=== PATIENT | male | born 1980 | race Caucasian/White ===

== ENCOUNTER 2017-02-26 22:14 | Inpatient (IN) | payer SELFPAY ==
[2017-02-26] MEDS ORDERED: Ondansetron INJ* 2 MG/ML VIAL IV ONE (22:28)
[2017-02-26] MEDS ORDERED: Ondansetron INJ* 2 MG/ML VIAL ONE (22:29)
[2017-02-26] MEDS: NS 0.9% 1000 ML* 2,000 ML IV ONE (22:43)
[2017-02-27] MEDS ORDERED: Ondansetron INJ* 2 MG/ML VIAL IV ONE (00:47)
[2017-02-27] MEDS: NS 0.9% 1000 ML* 2,000 ML IV ONE ×2 (00:52→00:53)
[2017-02-27] MEDS ORDERED: Albuterol/Ipratropium NEB.SOL* Albuterol 2.5 MG/Ipratropium 0.5 MG 3 ML INH ONE (01:42)
[2017-02-27 02:26] LABS: Hematocrit 38 % (42-52); Hemoglobin 12.7 g/dl (14.0-18.0); Mean Corpuscular HGB Conc 34 g/dl (31-36); Mean Corpuscular Hemoglobin 31 pg (27-31); Mean Corpuscular Volume 92 fL (80-94); Mean Platelet Volume 7 um3 (7.4-10.4); Red Blood Count 4.09 10^6/ul (4.0-5.4); Red Cell Distribution Width 13 % (10.5-15); White Blood Count 20.2 10^3/ul (3.5-10.8)
[2017-02-27 02:40] LABS: BUN/Creatinine Ratio 16.1 (8-20); C Reactive Protein 1.15 mg/L (< 5.00); Calcium 7.6 mg/dL (8.6-10.3); EGFR African American 125.6 (>60); EGFR Non-African American 97.7 (>60); Globulin 2.1 g/dL (2-4); Potassium 3.7 mmol/L (3.5-5.0); Total Bilirubin 0.6 mg/dL (0.2-1.0); Total Protein 6.1 g/dL (6.4-8.9)
[2017-02-27 02:42] LABS: Troponin I 0.03 ng/mL (<0.04)
[2017-02-27 02:56] LABS: TSH (Thyroid Stimulating Horm) 1.22 mcIU/mL (0.34-5.60)
[2017-02-27 03:55] LABS: Urine Bilirubin Negative (Negative); Urine Glucose Negative (Negative); Urine Nitrite Negative (Negative)
--- NOTE | 2017-02-27 04:08 | HP ---
H&P (Free Text) History and Physical: PCP: none Date/Time: 02/27/2017 0355 CC: heroin OD HPI: Mr Barlow is a 37YO male HX polysubstance abuse who was at work at the [employer] last evening when he snorted 1/2 of the heroin he had. He felt ' fine', but later was 'coming down' and so snorted the other half and went back to work. The next thing he knew was of awakening in an ambulance vomiting. Since arrival, he states he feels better, but has chest tightness, SOB, & an saO2 in the low 90s. CXR reveals RML & LLL infiltrates consistent with aspiration. WBCs are 20k. PMedHx polysubstance abuse Ambulatory Orders NK [No Home Medications Reported] 09/22/12 Allergies No Known Allergies Allergy (Verified 02/26/17 22:40) PSurgHx denies SocHx: quit cigarettes 2 years ago, ~12 beers/week, regular marijuana, rare heroin which he has injected previously but not for year; single, 2 children, lives alone; full code status FamHx: Mother: alive in her 60s, healthy; Father: , cholangiocarcinoma, age 64; 1/2 sister: addiction, "female problems" ROS: as above, otherwise reviewed and all were negative vitals: Vital Signs Temp 36.8 C 02/26/17 22:38 Pulse 100 02/27/17 04:00 Resp 25 02/27/17 04:00 BP 135/79 02/27/17 04:00 Pulse Ox 96 02/27/17 04:00 Intake & Output 02/26/17 02/26/17 02/27/17 11:59 23:59 11:59 Intake Total 2001 2 Balance 2001 2 Weight 77.111 kg Intake: IV Fluids 2001 07 Constitutional: NAD, normally developed, well-nourished white male HEENM: atraumatic; sclera/conjunctiva: non-icteric/mildly injected OU; blephara : puffy; hearing: clinically intact; oropharynx: clear, mucosa moist Neck: soft tissue: non-tender; thyroid: normal Pulmonary: diminished R mid-field with scant crackle, fair aeration, no accessory muscle use CV: TR/RR, normal S1S2, no carotid bruit, no jugular venous distention, 2+ B DP/ PT, no edema Abdominal: soft, non-distended, non-tender, no rebound/guarding/rigidity, normoactive bowel sounds, no hepatosplenomegaly or masses, no costovertebral angle tenderness Musculoskeletal: general: grossly intact; gait: stable Integumental: normal appearance and texture of exposed skin Psychiatric orientation: AA&O to PPS affect: calm mood: cooperative eye contact: fair content: reliable responses: timely insight: fair Testing: Lab Results 02/27/17 02/27/17 02/27/17 Range/Units 02:00 02:00 02:00 WBC (3.5-10.8) 10^3/ul RBC (4.0-5.4) 10^6/ul Hgb (14.0-18.0) g/dl Hct (42-52) % MCV (80-94) fL MCH (27-31) pg MCHC (31-36) g/dl RDW (10.5-15) % Plt Count (150-450) 10^3/ul MPV (7.4-10.4) um3 Neut % (Auto) (38-83) % Lymph % (Auto) (25-47) % [place] % (Auto) (1-9) % Eos % (Auto) (0-6) % Baso % (Auto) (0-2) % Absolute Neuts (auto) (1.5-7.7) 10^3/ul Absolute Lymphs (auto) (1.0-4.8) 10^3/ul Absolute Monos (auto) (0-0.8) 10^3/ul Absolute Eos (auto) (0-0.6) 10^3/ul Absolute Basos (auto) (0-0.2) 10^3/ul Absolute Nucleated RBC 10^3/ul Nucleated RBC % INR (Anticoag Therapy) 0.85 L (0.89-1.11) APTT 23.8 L (26.0-36.3) seconds Sodium 137 (133-145) mmol/L Potassium 3.7 (3.5-5.0) mmol/L Chloride 105 (101-111) mmol/L Carbon Dioxide 24 (22-32) mmol/L Anion Gap 8 (2-11) mmol/L BUN 14 (6-24) mg/dL Creatinine 0.87 (0.67-1.17) mg/dL Est GFR ( Amer) 125.6 (>60) Est GFR (Non-Af Amer) 97.7 (>60) BUN/Creatinine Ratio 16.1 (8-20) Glucose 109 H (70-100) mg/dL Lactic Acid (0.5-2.0) mmol/L Calcium 7.6 L (8.6-10.3) mg/dL Total Bilirubin 0.60 (0.2-1.0) mg/dL AST 40 H (13-39) U/L ALT 42 (7-52) U/L Alkaline Phosphatase 54 (34-104) U/L Troponin I 0.03 (<0.04) ng/mL C-Reactive Protein 1.15 (< 5.00) mg/L B-Natriuretic Peptide 24 ( - 100) pg/mL Total Protein 6.1 L (6.4-8.9) g/dL Albumin 4.0 (3.2-5.2) g/dL Globulin 2.1 (2-4) g/dL Albumin/Globulin Ratio 1.9 (1-3) Lipase 33 (11.0-82.0) U/L TSH 1.22 (0.34-5.60) mcIU/mL Urine Color Urine Appearance Urine pH (5-9) Ur Specific [place] (1.010-1.030) Urine Protein (Negative) Urine Ketones (Negative) Urine Blood (Negative) Urine Nitrate (Negative) Urine Bilirubin (Negative) Urine Urobilinogen (Negative) Ur Leukocyte Esterase (Negative) Urine Glucose (Negative) 02/27/17 02/27/17 02/27/17 Range/Units 02:00 02:00 03:45 WBC 20.2 H (3.5-10.8) 10^3/ul RBC 4.09 (4.0-5.4) 10^6/ul Hgb 12.7 L (14.0-18.0) g/dl Hct 38 L (42-52) % MCV 92 (80-94) fL MCH 31 (27-31) pg MCHC 34 (31-36) g/dl RDW 13 (10.5-15) % Plt Count 288 (150-450) 10^3/ul MPV 7 L (7.4-10.4) um3 Neut % (Auto) 89.4 H (38-83) % Lymph % (Auto) 4.2 L (25-47) % [place] % (Auto) 6.3 (1-9) % Eos % (Auto) 0.1 (0-6) % Baso % (Auto) 0 (0-2) % Absolute Neuts (auto) 18.0 H (1.5-7.7) 10^3/ul Absolute Lymphs (auto) 0.9 L (1.0-4.8) 10^3/ul Absolute Monos (auto) 1.3 H (0-0.8) 10^3/ul Absolute Eos (auto) 0 (0-0.6) 10^3/ul Absolute Basos (auto) 0 (0-0.2) 10^3/ul Absolute Nucleated RBC 0 10^3/ul Nucleated RBC % 0 INR (Anticoag Therapy) (0.89-1.11) APTT (26.0-36.3) seconds Sodium (133-145) mmol/L Potassium (3.5-5.0) mmol/L Chloride (101-111) mmol/L Carbon Dioxide (22-32) mmol/L Anion Gap (2-11) mmol/L BUN (6-24) mg/dL Creatinine (0.67-1.17) mg/dL Est GFR ( Amer) (>60) Est GFR (Non-Af Amer) (>60) BUN/Creatinine Ratio (8-20) Glucose (70-100) mg/dL Lactic Acid 0.9 (0.5-2.0) mmol/L Calcium (8.6-10.3) mg/dL Total Bilirubin (0.2-1.0) mg/dL AST (13-39) U/L ALT (7-52) U/L Alkaline Phosphatase (34-104) U/L Troponin I (<0.04) ng/mL C-Reactive Protein (< 5.00) mg/L B-Natriuretic Peptide ( - 100) pg/mL Total Protein (6.4-8.9) g/dL Albumin (3.2-5.2) g/dL Globulin (2-4) g/dL Albumin/Globulin Ratio (1-3) Lipase (11.0-82.0) U/L TSH (0.34-5.60) mcIU/mL Urine Color Straw Urine Appearance Clear Urine pH 6.0 (5-9) Ur Specific [place] 1.011 (1.010-1.030) Urine Protein Negative (Negative) Urine Ketones Trace H (Negative) Urine Blood Negative (Negative) Urine Nitrate Negative (Negative) Urine Bilirubin Negative (Negative) Urine Urobilinogen Negative (Negative) Ur Leukocyte Esterase Negative (Negative) Urine Glucose Negative (Negative) ECG, personally reviewed: NSR rate 94, no ischemia CXR, personally reviewed: RML and LLL infiltrates Impression: 37M presenting with snorted heroin OD with finding of RML/LLL aspiration pneumonia DIAGNOSIS & PLAN Primary sepsis (leukocytosis, tackycardia) 2nd RML/LLL aspiration pneumonia : IV piperacillin/tazobactam : IVFs : blood & sputum CXs : guaifenesin : incentive spirometry : supplemental oxygen : supportive care polysubstance abuse w/ heroin OD : social service consult Admission Rational: inpatient for sepsis 2nd aspiration pneumonia requiring IV ABX & IVFs; inappropriate for outpatient setting DVTp: GRAYSON Code Status: full
[2017-02-27] MEDS ORDERED: CMCS:Melatonin (NF) 3 MG TAB PO PRN (04:13)
[2017-02-27] MEDS ORDERED: Acetaminophen TAB* 325 MG PO PRN (04:13)
[2017-02-27] MEDS ORDERED: Albuterol 2.5 MG/3 ML NEB.SOL* (0.083%) INH PRN (04:13)
[2017-02-27] MEDS ORDERED: Ondansetron INJ* 2 MG/ML VIAL IV PRN (04:13)
[2017-02-27] MEDS ORDERED: Omeprazole CAP* 20 MG PO SCH (06:00)
[2017-02-27] MEDS: NS 0.9% 1000 ML* 1,000 ML IV SCH ×2 (06:01→14:58)
[2017-02-27 07:43] LABS: Hematocrit 36 % (42-52); Hemoglobin 12.1 g/dl (14.0-18.0); Mean Corpuscular HGB Conc 34 g/dl (31-36); Mean Corpuscular Hemoglobin 31 pg (27-31); Mean Corpuscular Volume 92 fL (80-94); Mean Platelet Volume 7 um3 (7.4-10.4); Red Blood Count 3.94 10^6/ul (4.0-5.4); Red Cell Distribution Width 14 % (10.5-15)
--- NOTE | 2017-02-27 07:55 | RAD ---
HISTORY: Shortness of breath, heroine overdose COMPARISONS: None VIEWS: 1: frontal portable view of the chest at 1:48 AM FINDINGS: LINES AND TUBES: None. CARDIOMEDIASTINAL SILHOUETTE: The cardiomediastinal silhouette is normal for portable technique. PLEURA: The costophrenic angles are sharp. No pleural abnormalities are noted. LUNG PARENCHYMA: There is patchy perihilar alveolar opacification on the right with patchy alveolar opacification of the left lower lung ABDOMEN: The upper abdomen is clear. There is no subphrenic gas. BONES AND SOFT TISSUES: No bone or soft tissue abnormalities are noted. IMPRESSION: PATCHY BILATERAL CONSOLIDATION
[2017-02-27] MEDS ORDERED: Docusate CAP* 100 MG PO SCH (09:00)
[2017-02-27] MEDS ORDERED: guaiFENesin ER TAB 600 MG PO SCH (09:00)
[2017-02-27] MEDS ORDERED: LORazepam TAB(*) 0.5 MG PO PRN (11:16)
[2017-02-27 14:41] VITALS: BP 117/61
--- NOTE | 2017-02-28 03:27 | DS ---
DISCHARGE SUMMARY: DATE OF ADMISSION: 02/27/17 DATE OF DISCHARGE: 02/27/17 DISCHARGE DIAGNOSES: 1. Incidental heroin overdose. 2. Aspiration pneumonia. MEDICATIONS ON DISCHARGE: Include Augmentin 500 mg p.o. b.i.d. for a total of 6 days. LABORATORY DATA: On 02/27/17, white blood cell count of 18.0, hemoglobin 12.1, hematocrit 36, and platelets of 280. Sodium 137, potassium 3.7, chloride 105, carbon dioxide 24, BUN 14, creatinine 0.8, TSH was 1.22. Portable chest x-ray obtained on admission. Impression: "Patchy bilateral consolidation." HOSPITALIZATION COURSE: Keron Barlow is a 37-year-old male who has a history of heroin use and he was "clean" for 2 weeks until the night on 02/26/17, when he snorted heroin twice, when he was working and the next thing he knew he woke up in his vomitus, being transferred by the ambulance to the hospital. The patient was treated with Narcan. He was diagnosed with aspiration pneumonia and placed on Zosyn. He did very well. By the time of discharge, he was not hypoxemic any more. His leukocytosis was improving. He was nontoxic appearing and comfortable breathing on room air when ambulating. He is going to be discharged home. Recommendation to follow up with his primary care provider. Social work saw the patient in consultation and he is in the process of application for the patient for Medicaid and then primary care provider physician could be established. In regards to patient's heroin use, the patient stated that he had been clean for 2 weeks prior to the incident and he is not interested in using the heroin or any other narcotics in the future. He was informed about the possibility of being signed in with an addiction clinic for Suboxone treatment. Once again the patient stated that he would go through withdrawal since he had not used for a couple of weeks prior, according to the patient. PHYSICAL EXAMINATION: At the time of discharge, blood pressure is 117/61, heart rate of 73 and regular, respiratory rate is 16, oxygen saturation 99% on room air, and temperature 98.3. General: The patient is a pleasant 37-year- old male, who is in no acute distress. Alert, awake, and oriented x2. HEENT: Head, atraumatic, normocephalic. Eyes, pupils are equal and reactive to light and accommodation. Oropharynx clear. Mucosa moist. Neck: Supple. No JVD. No bruits bilaterally. Cardiovascular: Regular rate and rhythm. No murmurs. Respiratory: Clear to auscultation bilaterally. Abdomen: Soft and nontender. Bowel sounds present in all 4 quadrants. Extremities: There is no edema, +2 bilaterally. No clubbing or cyanosis. Evaluation of skin: No ecchymotic area. Psychiatric evaluation: The patient is pleasant, cooperative with evaluation with no evidence of anxiety or depression. Please note due to the fact that patient has no insurance, he was prescribed urgent Rx prescription to [facility]. 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 [id number]/[facility] #: [id number] MTDD
--- NOTE | 2017-03-02 05:43 | ED ---
Cayla Sanchez Alfonso, scribed for Bertram Lucia MD on 02/27/17 at 0123 . Substance Abuse/Use - HPI Summary HPI Summary: This patient is a 37 year old M BIBA to [facility] with a chief complaint of snorted heroin OD at approximately 2100. The patient rates the aching pain 10/ 10 in severity. Symptoms aggravated by nothing. Symptoms alleviated by Narcan TRAINING MANAGER. Patient reports nausea, vomiting, CP (tightness), productive cough, LOC ( resolved with Narcan), and headache. Patient denies abdominal pain. - History Of Current Complaint Chief Complaint: EDOverdose Stated Complaint: OVERDOSE Time Seen by Provider: 02/26/17 22:28 Hx Obtained From: Patient Ingestion History: Type/Name Of Drug - Heroin Overdose Characteristics: Inhalation Timing Of Abuse: Binge Use Severity Currently: Severe Aggravating Factor(s): Nothing Alleviating Factor(s): Medication - Narcan Associated Signs And Symptoms: Other: - nausea, vomiting, CP (tightness), productive cough, LOC (resolved with Narcan), and headache. Patient denies abdominal pain. - Allergies/Home Medications Allergies/Adverse Reactions: Allergies Allergy/AdvReac Type Severity Reaction Status Date / Time No Known Allergies Allergy Verified 02/26/17 22:40 PMH/Surg Hx/FS Hx/Imm Hx Sensory History: Denies: Hx Contacts or Glasses Opthamlomology History: Denies: Hx Contacts or Glasses, Hx Legally Blind EENT History: Denies: Hx Deafness Psychiatric History: Reports: Hx Substance Abuse - per ED nurse, IV drug abuse Denies: Hx of Violent Episodes Against Others Infectious Disease History: Yes Infectious Disease History: Denies: Traveled Outside the [place] in Last 30 Days - Family History Known Family History: Positive: Other - reviewed and noncontributory - Social History Alcohol Use: Occasionally Substance Use Type: Reports: Cocaine, Heroin, Marijuana, Synthetic Drugs, Other Substance Use Comment - Amount & Last Used: IV drug use Smoking Status (MU): Current Every Day Smoker Review of Systems Positive: Chest Pain Positive: Cough Positive: Vomiting, Nausea. Negative: Abdominal Pain Neurological: Other - snorted heroin OD, LOC (resolved with Narcan), and headache All Other Systems Reviewed And Are Negative: Yes Physical Exam - Summary Physical Exam Summary: General: Mildly ill-appearing, no pain distress Skin: warm, color reflects adequate perfusion, dry Head: normal Eyes: EOMI, HAYDE ENT: normal Neck: supple, nontender Respiratory: CTA, breath sounds present Cardiovascular: Tachycardic. Regular rhythm. Abdomen: soft, nontender Bowel: present Musculoskeletal: normal, strength/ROM intact Neurological: normal, sensory/motor intact, A&O x3 Psychological: affect/mood appropriate Triage Information Reviewed: Yes Vital Signs On Initial Exam: Initial Vitals BP 130/81 02/26/17 22:34 Vital Signs Reviewed: Yes - Roxanne Coma Scale Coma Scale Total: 15 Diagnostics - Vital Signs Vital Signs Temp Pulse Resp BP Pulse Ox 02/27/17 00:00 86 32 127/101 95 02/26/17 23:30 89 29 123/94 95 02/26/17 23:00 80 15 130/92 94 02/26/17 22:38 98.3 F 83 18 130/81 92 02/26/17 22:35 16 02/26/17 22:34 130/81 - Laboratory Lab Results: Lab Results 02/27/17 02/27/17 02/27/17 Range/Units 02:00 02:00 02:00 WBC (3.5-10.8) 10^3/ul RBC (4.0-5.4) 10^6/ul Hgb (14.0-18.0) g/dl Hct (42-52) % MCV (80-94) fL MCH (27-31) pg MCHC (31-36) g/dl RDW (10.5-15) % Plt Count (150-450) 10^3/ul MPV (7.4-10.4) um3 Neut % (Auto) (38-83) % Lymph % (Auto) (25-47) % [place] % (Auto) (1-9) % Eos % (Auto) (0-6) % Baso % (Auto) (0-2) % Absolute Neuts (auto) (1.5-7.7) 10^3/ul Absolute Lymphs (auto) (1.0-4.8) 10^3/ul Absolute Monos (auto) (0-0.8) 10^3/ul Absolute Eos (auto) (0-0.6) 10^3/ul Absolute Basos (auto) (0-0.2) 10^3/ul Absolute Nucleated RBC 10^3/ul Nucleated RBC % INR (Anticoag Therapy) 0.85 L (0.89-1.11) APTT 23.8 L (26.0-36.3) seconds Sodium 137 (133-145) mmol/L Potassium 3.7 (3.5-5.0) mmol/L Chloride 105 (101-111) mmol/L Carbon Dioxide 24 (22-32) mmol/L Anion Gap 8 (2-11) mmol/L BUN 14 (6-24) mg/dL Creatinine 0.87 (0.67-1.17) mg/dL Est GFR ( Amer) 125.6 (>60) Est GFR (Non-Af Amer) 97.7 (>60) BUN/Creatinine Ratio 16.1 (8-20) Glucose 109 H (70-100) mg/dL Lactic Acid (0.5-2.0) mmol/L Calcium 7.6 L (8.6-10.3) mg/dL Total Bilirubin 0.60 (0.2-1.0) mg/dL AST 40 H (13-39) U/L ALT 42 (7-52) U/L Alkaline Phosphatase 54 (34-104) U/L Troponin I 0.03 (<0.04) ng/mL C-Reactive Protein 1.15 (< 5.00) mg/L B-Natriuretic Peptide 24 ( - 100) pg/mL Total Protein 6.1 L (6.4-8.9) g/dL Albumin 4.0 (3.2-5.2) g/dL Globulin 2.1 (2-4) g/dL Albumin/Globulin Ratio 1.9 (1-3) Lipase 33 (11.0-82.0) U/L TSH 1.22 (0.34-5.60) mcIU/mL Urine Color Urine Appearance Urine pH (5-9) Ur Specific [place] (1.010-1.030) Urine Protein (Negative) Urine Ketones (Negative) Urine Blood (Negative) Urine Nitrate (Negative) Urine Bilirubin (Negative) Urine Urobilinogen (Negative) Ur Leukocyte Esterase (Negative) Urine Glucose (Negative) 02/27/17 02/27/17 02/27/17 Range/Units 02:00 02:00 03:45 WBC 20.2 H (3.5-10.8) 10^3/ul RBC 4.09 (4.0-5.4) 10^6/ul Hgb 12.7 L (14.0-18.0) g/dl Hct 38 L (42-52) % MCV 92 (80-94) fL MCH 31 (27-31) pg MCHC 34 (31-36) g/dl RDW 13 (10.5-15) % Plt Count 288 (150-450) 10^3/ul MPV 7 L (7.4-10.4) um3 Neut % (Auto) 89.4 H (38-83) % Lymph % (Auto) 4.2 L (25-47) % [place] % (Auto) 6.3 (1-9) % Eos % (Auto) 0.1 (0-6) % Baso % (Auto) 0 (0-2) % Absolute Neuts (auto) 18.0 H (1.5-7.7) 10^3/ul Absolute Lymphs (auto) 0.9 L (1.0-4.8) 10^3/ul Absolute Monos (auto) 1.3 H (0-0.8) 10^3/ul Absolute Eos (auto) 0 (0-0.6) 10^3/ul Absolute Basos (auto) 0 (0-0.2) 10^3/ul Absolute Nucleated RBC 0 10^3/ul Nucleated RBC % 0 INR (Anticoag Therapy) (0.89-1.11) APTT (26.0-36.3) seconds Sodium (133-145) mmol/L Potassium (3.5-5.0) mmol/L Chloride (101-111) mmol/L Carbon Dioxide (22-32) mmol/L Anion Gap (2-11) mmol/L BUN (6-24) mg/dL Creatinine (0.67-1.17) mg/dL Est GFR ( Amer) (>60) Est GFR (Non-Af Amer) (>60) BUN/Creatinine Ratio (8-20) Glucose (70-100) mg/dL Lactic Acid 0.9 (0.5-2.0) mmol/L Calcium (8.6-10.3) mg/dL Total Bilirubin (0.2-1.0) mg/dL AST (13-39) U/L ALT (7-52) U/L Alkaline Phosphatase (34-104) U/L Troponin I (<0.04) ng/mL C-Reactive Protein (< 5.00) mg/L B-Natriuretic Peptide ( - 100) pg/mL Total Protein (6.4-8.9) g/dL Albumin (3.2-5.2) g/dL Globulin (2-4) g/dL Albumin/Globulin Ratio (1-3) Lipase (11.0-82.0) U/L TSH (0.34-5.60) mcIU/mL Urine Color Straw Urine Appearance Clear Urine pH 6.0 (5-9) Ur Specific [place] 1.011 (1.010-1.030) Urine Protein Negative (Negative) Urine Ketones Trace H (Negative) Urine Blood Negative (Negative) Urine Nitrate Negative (Negative) Urine Bilirubin Negative (Negative) Urine Urobilinogen Negative (Negative) Ur Leukocyte Esterase Negative (Negative) Urine Glucose Negative (Negative) Result Diagrams: 02/27/17 07:22 02/27/17 02:00 Lab Statement: Any lab studies that have been ordered have been reviewed, and results considered in the medical decision making process. - Radiology CXR Radiology Interpretation Completed By: ED Physician - pneumonia - EKG 0141 Cardiac Rate: NL - BPM 94 EKG Rhythm: Sinus Rhythm Course/Dx - Course Course Of Treatment: PATIENT WAS UNCONSCIOUS WHEN - Diagnoses Provider Diagnoses: Heroin overdose, Pneumonia, Hypoxia - Physician Notifications Discussed Care Of Patient With: Jodri Salguero Time Discussed With Above Provider: 03:38 Instructed by Provider To: Other - Consulted Dr. Salguero (hospitalist) who agrees to admit. Discharge - Discharge Plan Condition: Stable Disposition: ADMITTED TO [facility] documentation as recorded by the Cayla andrea Alfonso accurately reflects the service I personally performed and the decisions made by me, Bertram Lucia MD.
== END 2017-02-27 18:30 | disposition home or self-care (01) | DRG 871 ==
LOC: ED 22:14 → MED 02-27 03:55
PROVIDERS: ADMIT Hospitalist; ATTEND Internal Medicine
DX: A41.9 Sepsis, unspecified organism (principal); J69.0 Pneumonitis due to inhalation of food and vomit; I50.9 Heart failure, unspecified; I11.0 Hypertensive heart disease with heart failure; T40.1X2A Poisoning by heroin, intentional self-harm, initial encounter; Y92.9 Unspecified place or not applicable; Z87.891 Personal history of nicotine dependence; F19.10 Other psychoactive substance abuse, uncomplicated; I48.91 Unspecified atrial fibrillation; I25.10 Atherosclerotic heart disease of native coronary artery without angina pectoris; J44.9 Chronic obstructive pulmonary disease, unspecified; M81.0 Age-related osteoporosis without current pathological fracture; M35.3 Polymyalgia rheumatica; Z88.0 Allergy status to penicillin; Z88.1 Allergy status to other antibiotic agents; H35.30 Unspecified macular degeneration; H40.9 Unspecified glaucoma; Z95.2 Presence of prosthetic heart valve; Z82.49 Family history of ischemic heart disease and other diseases of the circulatory system
CPT/HCPCS: 36415; 71010; 80053; 81003; 83605; 83690; 83880; 84443; 84484; 85025; 85610; 85730; 86140; 87040; 87070; 87205; 93005; 94640; A9270-GY; J2405; J2543